=== PATIENT | female | born 1970 | race Caucasian/White ===

== ENCOUNTER 2016-09-30 00:45 | Emergency (ER) | payer MEDICAID ==
[2016-09-30 00:54] VITALS: RESP 20; O2SAT 99
[2016-09-30] MEDS ORDERED: Sodium Chloride 0.9% 1,000 ML IV ONE (01:55)
--- NOTE | 2016-09-30 01:57 | C.PDOC ---
History Of Present Illness patient presents with sharp luq pain since yesterday a around 4 am . Sharp , cramping pain, non radiating. No f/c/n/v, no dysuria Time Seen by Provider: 09/30/16 01:50 Chief Complaint (Nursing): GI Problem History Per: Patient History/Exam Limitations: no limitations Onset/Duration Of Symptoms: Days Current Symptoms Are (Timing): Still Present Context: Other Severity: Moderate Pain Scale Rating Of: 5 Location Of Pain/Discomfort: LUQ Radiation Of Pain To:: None Quality Of Discomfort: Sharp, Pressure Associated Symptoms: denies: Fever, Chills, Nausea Exacerbating Factors: None Alleviating Factors: None Recent travel outside of the [place]: No Additional History Per: Family Abnormal Vaginal Bleeding: No Past Medical History Reviewed: Historical Data, Nursing Documentation, Vital Signs Vital Signs: Last Vital Signs Temp 97.7 F 09/30/16 00:51 Pulse 85 09/30/16 00:51 Resp 20 09/30/16 00:51 BP 137/88 09/30/16 00:51 Pulse Ox 99 09/30/16 02:09 - Medical History PMH: Diabetes, Migraine, Chronic Pain Surgical History: Back Surgery (2013), Tonsillectomy (4 yrs old) - [facility] Procedures INJECT/INFUSE NEC (01/14/14) Family History: States: No Known Family Hx - Social History Hx Tobacco Use: No Hx Alcohol Use: No Hx Substance Use: No - Immunization History Hx Tetanus Toxoid Vaccination: Yes Hx Influenza Vaccination: Yes Hx Pneumococcal Vaccination: Yes Review Of Systems Constitutional: Negative for: Fever, Chills Cardiovascular: Negative for: Chest Pain Respiratory: Negative for: Shortness of Breath Gastrointestinal: Positive for: Abdominal Pain. Negative for: Nausea, Vomiting Genitourinary: Negative for: Dysuria Musculoskeletal: Negative for: Back Pain Skin: Negative for: Rash, Lesions, Jaundice, Bruising Neurological: Negative for: Weakness Psych: Negative for: Anxiety Physical Exam - Physical Exam Appears: Non-toxic Skin: Warm, Dry Oral Mucosa: Moist Neck: Supple Chest: Symmetrical Cardiovascular: Rhythm Regular Respiratory: No Rales, No Rhonchi, No Wheezing Gastrointestinal/Abdominal: Bowel Sounds (tympanic to percussion), Soft, Tenderness (luq), No Distention, No Guarding, No Rebound Back: Normal Inspection Extremity: Normal ROM Extremity: Bilateral: Atraumatic, Normal Color And Temperature Neurological/Psych: Oriented x3, Normal Speech, Normal Cognition Gait: Steady ED Course And Treatment - Laboratory Results Result Diagrams: 09/30/16 02:10 09/30/16 02:10 O2 Sat by Pulse Oximetry: 99 Pulse Ox Interpretation: Normal Progress Note: blood work, ivf, morphine,pepcid Reevaluation Time: 04:46 Reassessment Condition: Improved Medical Decision Making Medical Decision Making: Upon provider reevaluation patient is feeling better, is medically stable, and requires no further treatment in the ED at this time. Patient will be discharged home with Rx for miralax and bentyl . Counseling was provided and all questions were answered regarding diagnosis and need for follow up with the referred clinic. There is agreement to discharge plan. Return if symptoms persist or worsen. Disposition Counseled Patient/Family Regarding: Studies Performed, Diagnosis, Need For Followup, Rx Given - Disposition Referrals: Braeden Meeks DPM [Staff Provider] - Disposition: HOME/ ROUTINE Disposition Time: 01:54 Condition: FAIR Prescriptions: Dicyclomine [Dicyclomine HCl] 10 mg PO QID #20 cap Polyethylene Glycol 3350 [Miralax] 17 gm PO DAILY #270 ml Instructions: Abdominal Pain (ED), Gas and Bloating (ED) - Clinical Impression Clinical Impression: Abdominal pain
[2016-09-30] MEDS ORDERED: Morphine 4 MG/ML VIAL ONE ×2 (02:07→04:54)
[2016-09-30] MEDS ORDERED: Sodium Chloride 0.9% 1,000 ML ONE (02:07)
[2016-09-30 02:14] LABS: BASO # 0.1 K/uL (0.0-0.2); BASO % 0.9 % (0.0-2.0); EOS # 0.2 K/uL (0.0-0.7); EOS % 2.1 % (0.0-4.0); HEMATOCRIT 34.6 % (34.0-47.0); LYMPH # 3.3 K/uL (1.0-4.3); LYMPH % 39.2 % (20.0-40.0); MEAN CELL VOLUME 83.8 fL (81.0-99.0); MEAN CORPUSCULAR HEMOGLOBIN 27.4 pg (27.0-31.0); MEAN CORPUSCULAR HGB CONC 32.7 g/dL (33.0-37.0); MEAN PLATELET VOLUME 10.2 fL (7.2-11.7); MONO # 0.4 K/uL (0.0-0.8); MONO % 5.2 % (0.0-10.0); RED CELL DISTRIBUTION WIDTH 14.8 % (11.5-14.5); WHITE BLOOD COUNT 8.4 K/uL (4.8-10.8)
[2016-09-30 02:17] LABS: RBC URINE 1 /hpf (0-3); URINE BACTERIA RARE (<OCC); URINE BILIRUBIN NEGATIVE (NEGATIVE); URINE BLOOD NEGATIVE (NEGATIVE); URINE COLOR Yellow (YELLOW); URINE GLUCOSE (UA) NORMAL (Normal); URINE KETONE NEGATIVE (NEGATIVE); URINE LEUKOCYTE ESTERASE NEG Leu/uL (Negative); URINE PROTEIN NEGATIVE (NEGATIVE); URINE UROBILINOGEN NORMAL mg/dL (0.2-1.0); WBC URINE 1 /hpf (0-5)
[2016-09-30 02:22] LABS: CHLORIDE 105 mmol/L (98-107); SODIUM 141 mmol/L (132-148)
[2016-09-30 02:23] LABS: POTASSIUM 3.7 mmol/L (3.6-5.2)
[2016-09-30 02:25] LABS: ALB/GLOB RATIO 1.3 (1.0-2.1); ALKALINE PHOSPHATASE 85 U/L (38-126); ALT/SGPT 17 U/L (9-52); AST/SGOT 18 U/L (14-36); BILIRUBIN,TOTAL 0.2 mg/dL (0.2-1.3); BLOOD UREA NITROGEN 18 mg/dL (7-17); CALCIUM 8.7 mg/dl (8.6-10.4); CARBON DIOXIDE 23 mmol/L (22-30); GFR AFRICAN-AMERICAN > 60; GLUCOSE,RANDOM 106 mg/dL (65-105); TOTAL PROTEIN 6.8 g/dL (6.3-8.3)
[2016-09-30] MEDS ORDERED: Iodixanol 320 MG/ML 100 ML BOTTLE IV ONE (03:20)
--- NOTE | 2016-09-30 04:29 | CT ---
EXAM: CT Abdomen and Pelvis With Intravenous Contrast CLINICAL HISTORY: 45 years old, female; Pain; Abdominal pain; Prior surgery; Surgery type: Lower back and c-secyon; Patient HX: 2-19-14 we do not have images for 2013; Additional info: Luq pain TECHNIQUE: Axial computed tomography images of the abdomen and pelvis with intravenous contrast. This CT exam was performed using one or more of the following dose reduction techniques: automated exposure control, adjustment of the mA and/or kV according to patient size, and/or use of iterative reconstruction technique. Coronal and sagittal reformatted images were created and reviewed. CONTRAST: 100 mL of [id number] administered intravenously. COMPARISON: No relevant prior studies available. FINDINGS: Lower thorax: Mild cardiomegaly. Minimal atelectasis/scarring. ABDOMEN: Liver: Unremarkable. No mass. Gallbladder and bile ducts: No calcified stones. No ductal dilation. Pancreas: No ductal dilation. No mass. Spleen: No splenomegaly. Adrenals: No mass. Kidneys and ureters: No mass. No hydronephrosis. Stomach and bowel: Few scattered diverticula within colon. No associated inflammatory stranding. No definite mural thickening. No obstruction. Appendix: No findings to suggest acute appendicitis. PELVIS: Bladder: Unremarkable. Reproductive: Unremarkable as visualized. ABDOMEN and PELVIS: Intraperitoneal space: No significant fluid collection. No free air. Bones/joints: Degenerative changes of lower lumbar spine. No acute fracture. Soft tissues: Unremarkable. Vasculature: Unremarkable. No abdominal aortic aneurysm. Lymph nodes: No pathologically enlarged lymph nodes. IMPRESSION: 1. No definite acute intraabdominal abnormality. 2. Incidental/non-acute findings are described above.
[2016-09-30 05:32] VITALS: BP 132/78; PULSE 87; TEMP 97.8
== END 2016-09-30 05:32 | disposition home or self-care (01) ==
LOC: C.ER 00:45
DX: R10.12 Left upper quadrant pain (principal)
CPT/HCPCS: 74177; 80053; 81001; 83690; 84703; 85025; 85610; 85730; 96361; 96374; 96375; 96376; 99284; J2270; J2405; J7040; Q9967

== ENCOUNTER 2017-05-02 10:07 | Emergency (ER) | payer MEDICAID ==
[2017-05-02 10:18] VITALS: O2SAT 100; BMI 36.6
--- NOTE | 2017-05-02 10:59 | C.PDOC ---
History Of Present Illness 46 y/o F c PMHx DM p/w chest pain x 4 days. Pain is midsternal, like pressure, feels like she has to take a deep breath to make it go away, nonradiating, not exacerbated by anything. Has attempted to take ibuprofen and antacids without relief. Denies fever, chills, cough, nausea, vomiting, diaphoresis, dizziness, leg swelling, recent travel, hormone use, recent surgery or trauma, previous DVT /PE. Time Seen by Provider: 05/02/17 10:42 Chief Complaint (Nursing): Chest Pain Past Medical History Vital Signs: Last Vital Signs Temp 97.5 F L 05/02/17 10:18 Pulse 68 05/02/17 10:18 Resp 20 05/02/17 10:18 BP 164/98 H 05/02/17 10:18 Pulse Ox 100 05/02/17 11:29 - Medical History PMH: Diabetes, Migraine, Chronic Pain Surgical History: Back Surgery (2013), Tonsillectomy (4 yrs old) - [facility] Procedures INJECT/INFUSE NEC (01/14/14) Family History: States: Unknown Family Hx - Social History Hx Tobacco Use: No Hx Alcohol Use: No Hx Substance Use: No - Immunization History Hx Tetanus Toxoid Vaccination: Yes Hx Influenza Vaccination: Yes Hx Pneumococcal Vaccination: Yes Review Of Systems Except As Marked, All Systems Reviewed And Found Negative. Constitutional: Negative for: Fever Gastrointestinal: Negative for: Vomiting Physical Exam - Physical Exam Additional Physical Exam Comments: Constitutional: No acute distress. Head: Normocephalic. Atraumatic. Eyes: PERRL. ENT: Moist mucous membranes. Neck: Supple. Cardiovascular: Regular rate. Radial pulse 2+ bilaterally. Chest: No tenderness. Respiratory: Clear to auscultation bilaterally. GI: Soft. Nontender. Nondistended. Back: No CVA tenderness. Musculoskeletal: No tenderness of extremities.R lower leg appears larger than L. Skin: No rash. Neurologic: Alert, no focal deficit. ED Course And Treatment - Laboratory Results Result Diagrams: 05/02/17 11:17 05/02/17 11:17 O2 Sat by Pulse Oximetry: 100 Medical Decision Making Medical Decision Making: EKG NSR 70 bpm, no ST/T wave changes. Repeat EKG unchanged. Labs unremarkable. TECHNIQUE: Chest PA and lateral FINDINGS: Examination limited by habitus. LUNGS: Mild interstitial prominence may reflect infection or edema. Please note that chest x-ray has limited sensitivity for the detection of pulmonary masses. PLEURA: No significant pleural effusion identified. No definite pneumothorax . CARDIOVASCULAR: The cardiomediastinal silhouette appears within normal limits of size. OSSEOUS STRUCTURES: No acute osseous abnormality identified. VISUALIZED UPPER ABDOMEN: Unremarkable. OTHER FINDINGS: None. IMPRESSION: Mild interstitial prominence may reflect infection or edema. Will place on Z pack, instructed to f/u with primary care, instructed to return to ED for worsening pain, dyspnea, or any other problem. Disposition Counseled Patient/Family Regarding: Studies Performed, Need For Followup, Rx Given - Disposition Referrals: Omar Meeks, DNP, [facility] [Advanced Practice Nurse] - Disposition: HOME/ ROUTINE Disposition Time: 12:07 Condition: STABLE Prescriptions: Azithromycin [Zithromax] 2 tab PO DAILY #6 tab Instructions: Chest Pain (ED) Forms: [facility] (Togolese), Work Excuse - Clinical Impression Clinical Impression: Chest pain
[2017-05-02 11:24] LABS: BASO # 0.1 K/uL (0.0-0.2); BASO % 0.6 % (0.0-2.0); EOS # 0.1 K/uL (0.0-0.7); EOS % 0.7 % (0.0-4.0); HEMATOCRIT 36.7 % (34.0-47.0); LYMPH # 2.6 K/uL (1.0-4.3); LYMPH % 24.9 % (20.0-40.0); MEAN CELL VOLUME 84.8 fL (81.0-99.0); MEAN CORPUSCULAR HEMOGLOBIN 27.7 pg (27.0-31.0); MEAN CORPUSCULAR HGB CONC 32.7 g/dL (33.0-37.0); MEAN PLATELET VOLUME 9.9 fL (7.2-11.7); MONO # 0.6 K/uL (0.0-0.8); MONO % 5.2 % (0.0-10.0); WHITE BLOOD COUNT 10.6 K/uL (4.8-10.8)
[2017-05-02 11:36] LABS: CHLORIDE 103 mmol/L (98-107)
[2017-05-02 11:37] LABS: POTASSIUM 3.8 mmol/L (3.6-5.2); SODIUM 135 mmol/L (132-148)
[2017-05-02 11:39] LABS: ALB/GLOB RATIO 1.1 (1.0-2.1); ALKALINE PHOSPHATASE 86 U/L (38-126); ALT/SGPT 39 U/L (9-52); AST/SGOT 18 U/L (14-36); BILIRUBIN,TOTAL 0.4 mg/dL (0.2-1.3); BLOOD UREA NITROGEN 19 mg/dL (7-17); CARBON DIOXIDE 22 mmol/L (22-30); GFR AFRICAN-AMERICAN > 60; GLUCOSE,RANDOM 97 mg/dL (65-105); TOTAL PROTEIN 7.9 g/dL (6.3-8.3)
[2017-05-02 11:40] LABS: CALCIUM 8.8 mg/dl (8.6-10.4)
--- NOTE | 2017-05-02 11:58 | RAD ---
HISTORY: chest pain COMPARISON: None available. TECHNIQUE: Chest PA and lateral FINDINGS: Examination limited by habitus. LUNGS: Mild interstitial prominence may reflect infection or edema. Please note that chest x-ray has limited sensitivity for the detection of pulmonary masses. PLEURA: No significant pleural effusion identified. No definite pneumothorax . CARDIOVASCULAR: The cardiomediastinal silhouette appears within normal limits of size. OSSEOUS STRUCTURES: No acute osseous abnormality identified. VISUALIZED UPPER ABDOMEN: Unremarkable. OTHER FINDINGS: None. IMPRESSION: Mild interstitial prominence may reflect infection or edema.
[2017-05-02 12:25] VITALS: BP 158/97; PULSE 64; RESP 18; TEMP 98.2
--- NOTE | 2017-05-02 13:13 | VASCLAB ---
PROCEDURE: Lower Extremity Venous Duplex Exam. HISTORY: Leg swelling, r/o DVT PRIORS: None. TECHNIQUE: Bilateral common femoral, femoral, popliteal and posterior tibial, peroneal and great saphenous veins were evaluated. Flow was assessed with color Doppler, compressibility, assessment of phasic flow and augmentation response. Report prepared by Theo Cain, LUMA, RVT FINDINGS: RIGHT: 1. Common Femoral Vein: 1.1. Compressibility - Fully compressible: Thrombus - None : Flow - Phasic: Augmentation -Normal: Reflux - None. 2. Femoral Vein: 2.1. Compressibility - Fully compressible: Thrombus - None : Flow - Phasic: Augmentation -Normal: Reflux - None. 3. Popliteal Vein: 3.1. Compressibility - Fully compressible: Thrombus - None : Flow - Phasic: Augmentation -Normal: Reflux - None. 4. Posterior Tibial Vein: 4.1. Compressibility - Fully compressible: Thrombus - None: Flow - Phasic: Augmentation -Normal: Reflux - None. 5. Peroneal Vein: 5.1. Compressibility - Fully compressible: Thrombus - None: Flow - Phasic: Augmentation -Normal: Reflux - None. 6. Great Saphenous Vein: 6.1. Compressibility - Fully compressible: Thrombus - None: Flow - Phasic: Augmentation - Normal: Reflux - None. LEFT: 1. Common Femoral Vein: 1.1. Compressibility - Fully compressible: Thrombus - None: Flow - Phasic: Augmentation -Normal: Reflux - None. 2. Femoral Vein: 2.1. Compressibility - Fully compressible: Thrombus - None: Flow - Phasic: Augmentation -Normal: Reflux - None. 3. Popliteal Vein: 3.1. Compressibility - Fully compressible: Thrombus - None : Flow - Phasic: Augmentation -Normal: Reflux - None. 4. Posterior Tibial Vein: 4.1. Compressibility - Fully compressible: Thrombus - None: Flow - Phasic: Augmentation -Normal: Reflux - None. 5. Peroneal Vein: 5.1. Compressibility - Fully compressible: Thrombus - None: Flow - Phasic: Augmentation -Normal: Reflux - None. 6. Great Saphenous Vein: 6.1. Compressibility - Fully compressible: Thrombus - None: Flow - Phasic: Augmentation - Normal: Reflux - None. OTHER FINDINGS: Right: None significant. Left: None significant. IMPRESSION: Right: No evidence of deep or superficial vein thrombosis of the right lower extremity. Normal valve function noted of the right side. Left: No evidence of deep or superficial vein thrombosis of the left lower extremity. Normal valve function noted of the left side.
--- NOTE | 2017-05-04 17:42 | CARD ---
APPROVED REPORT EKG Measurement Heart [id number] [place] [id number] <Conclusion> Normal sinus rhythm Normal ECG
--- NOTE | 2017-05-04 17:44 | CARD ---
APPROVED REPORT EKG Measurement Heart [id number] [place] [id number] [id number] <Conclusion> Normal sinus rhythm Normal ECG
== END 2017-05-02 12:34 | disposition home or self-care (01) ==
LOC: C.ER 10:07
DX: R07.9 Chest pain, unspecified (principal); E11.9 Type 2 diabetes mellitus without complications

== ENCOUNTER 2018-07-06 08:56 | Outpatient (CLI) | payer MEDICAID | END 2018-07-06 08:57 | disposition home or self-care (01) | LOC: C.USIC 08:56 | DX: R10.2 Pelvic and perineal pain (principal) ==